=== PATIENT | male | born 1980 | race Caucasian/White ===

== ENCOUNTER 2019-07-12 11:02 | Emergency (ER) | payer OTHER, SELFPAY ==
[2019-07-12 11:03] VITALS: BP 108/76; PULSE 111; RESP 20; TEMP 37; O2SAT 93; BMI 35.1
--- NOTE | 2019-07-12 11:14 | ED.VIS.GEN ---
History of Present Illness Chief Complaint: Fever Informant: Patient Onset: Days Context: Gradual Onset Timing: Continuous Current Severity: Moderate Maximum Severity: Moderate Narrative: The patient presents to the emergency department with cough and fever. 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 He is following with a lung specialist at [facility]. He states that on Thursday, he began to have a low-grade fever. He states he was having worsening cough. He states he just did not feel like he was himself. He called his lung specialist who referred him to the emergency department for evaluation. He denies any chills. He denies any other history of immunosuppression. He is currently on prednisone. He is not on any antibiotics. Prior similar symptoms: Yes Recent Illness/Hospitalization: Yes Past Medical History - Allergies and Home Meds Allergies/Adverse Reactions: Allergies BIRDS Allergy (Uncoded 07/12/19 11:06) Other Primary Care Physician: Rivsa Bal MD [Primary Care Provider] - Prior records reviewed: Yes Past Medical History: - - Hypersensitivity pneumonitis Smoking Status: Never smoker Review of Systems General: Reports: Fever Eyes: Denies: Visual changes - bilaterally, Diplopia ENT: Denies: Rhinorrhea, Sore throat Cardiovascular: Denies: Chest pain, Palpitations Respiratory: Reports: Dyspnea, Cough, Sputum Gastrointestinal: Denies: Abdominal pain, Nausea, Vomiting, Diarrhea, Melena, Hematochezia Genitourinary: Denies: Dysuria, Hematuria, Frequency Musculoskeletal: Denies: Back pain, Extremity Pain Skin: Denies: Rash, Wounds Neurological: Denies: Headache, Weakness, Numbness Physical Exam Vital Signs/Narrative: Vital Signs Temp Pulse Resp BP Pulse Ox 07/12/19 11:03 98.6 F 111 H 20 H 108/76 93 Inital Vital Signs reviewed: Yes General: Well nourished, Well developed, No Acute Distress Head: Normocephalic, Atraumatic Eyes: Perrl, EOMI ENT: Moist mucous membranes, No rhinorrhea Neck: Supple, Nontender Cardiovascular: Regular rate, Regular rhythm, No murmurs Respiratory: No distress, Chest nontender, Decreased Air Movement Abdomen: Soft, Nontender, Nondistended, Normal bowel sounds Back: Nontender, Normal Inspection Extremities: Nontender, No edema Skin: Normal color, No rash Neurological: Alert, Oriented x3, Cranial nerves II-XII grossly intact, Normal Strength, Normal Sensation Psychological: Normal affect, Normal Mood Diagnostic/Tx/Re-eval Chest X-Ray - ED: 2 View, Read by ED Physician, Read by Radiologist, Chronic Changes, Right Infiltrate Clinical Impression(s) from Imaging Studies Chest X-Ray 07/12/19 12:10 IMPRESSION: Hyperexpansion with diffuse interstitial pattern and patchy opacities at both bases. Patchy opacities at both bases may represent atelectasis or early/developing pneumonia. Follow-up imaging should clarify these findings. No acute finding. Electronically Signed: Tej Boo MD at 12:22 EDT , Service support , - Medical Decision Making The patient presents to the emergency department fever. He has recent diagnosis of hypersensitivity pneumonitis. He had a scant cough. He is comfortable on his normal oxygen. He is afebrile here. Metabolic work-up was pursued. He does not have a significant leukocytosis. Chest x-ray demonstrates patchy infiltrates. I am unsure if this is infectious versus his inflammatory process. Either way, with his recent underlying lung disease I am going to cover him with both Augmentin and doxycycline. He does have follow-up this week with his restoration ecologist. Do not feel that he requires admission at this time. He is comfortable with this plan of care. Impression 1. Pneumonitis ED Disposition - Plan for ED Patient: Instructions: PNEUMONIA (Adult) Prescriptions: Amox/Clavulanate Tablet [Augmentin Tablet] 875 mg PO Q12H #20 tab Prescription Printed Doxycycline 100 mg PO BID #20 cap Prescription Printed Referrals: Rivas Bal MD [Primary Care Provider] -
[2019-07-12 12:04] VITALS: TEMP 37
[2019-07-12 12:09] LABS: Hematocrit 40.1 % (40-54); Hemoglobin 13.6 g/dL (13.0-16.5); Mean Corp Hgb Conc 33.9 g/dL (32-36); Mean Corpuscular Hgb 29.8 pg (27.0-32.0); Mean Corpuscular Volume 87.9 fL (80-94); Mean Platelet Vol. 9.1 fl (6.2-12.0); POSITIVE COUNT YES; POSITIVE DIFFERENTIAL YES; POSITIVE MORPHOLOGY YES; Platelet Count 227 K/mm3 (150-450); RBC Distribution Width CV 14.4 % (11.6-14.6); RBC Distribution Width SD 46.2 fl (35.1-43.9); Red Blood Count 4.56 M/mm3 (4.6-6.2); White Blood Count 8.4 K/mm3 (4.4-11.0)
--- NOTE | 2019-07-12 12:10 | RAD_ITS ---
STUDY: X-RAY CHEST REASON FOR EXAM: Male, 38 years old. Fever. TECHNIQUE: Frontal and lateral views of the chest. COMPARISON: None. FINDINGS: Mild hyperexpansion with diffuse interstitial pattern with a basilar predominance. Patchy opacities at both bases which may represent atelectasis or early/developing pneumonia. There is no demonstrated pleural abnormality. Normal size heart. Normal mediastinum and vickie. Normal visualized pulmonary arteries. Normal visualized aortic arch and descending thoracic aorta. Thoracolumbar scoliosis. Normal visualized ribs, clavicles, and shoulders. There is no demonstrated abnormality of the visualized soft tissue structures of the upper abdomen. RAD/Chest PA and Lateral IMPRESSION: Hyperexpansion with diffuse interstitial pattern and patchy opacities at both bases. Patchy opacities at both bases may represent atelectasis or early/developing pneumonia. Follow-up imaging should clarify these findings. No acute finding. Electronically Signed: Tej Boo MD at 12:22 EDT , Service support ,
[2019-07-12 12:25] LABS: Anion Gap 7 (5-15); BUN 11 mg/dL (7-18); BUN/Creat Ratio 14.2 RATIO (10-20); Calcium,Total 8.4 mg/dL (8.5-10.1); Chloride 104 mmol/L (98-107); Creatinine, Serum 0.77 mg/dL (0.70-1.30); EST Glomerular Filtration Rate 119 mL/min (>60); Est Glom Filt Rate - Afr Amer 144 mL/min (>60); Estimated Creatinine Clearance 95.97 ml/min; Glucose 88 mg/dL (74-106); Potassium 3.3 mmol/L (3.5-5.1); Sodium Level 140 mmol/L (136-145)
[2019-07-12 12:30] LABS: Differential Indicated MANUAL DIFF
[2019-07-12 12:40] LABS: Lymphocyte 7 % (19-41); Metamyelocyte 1 % (0-1); Monocyte 6 % (0-10); Neutrophil-Band 33 % (0-5); Neutrophil-Segmented 53 % (47-70); Total Cells Counted 100 (MANUAL DIFF)
[2019-07-12 12:45] LABS: Platelet Estimate ADEQUATE (ADEQ); Platelet Morphology LARGE; Red Cell Morphology NORM C+C NORMAL (NORM C&C)
[2019-07-12 12:46] LABS: Absolute Lymphocyte Count 0.59 X10^3/uL (0.83-4.51); Absolute Neutrophil Count 7.2 X10^3/uL (2.0-7.7); Lymphocyte # 0.59 X10^3/ul (4.0); Neutrophil # 7.24 X10^3/uL (2.7-7.7)
[2019-07-12] MEDS: Doxycycline 100 MG CAPSULE PO (13:09)
[2019-07-12] MEDS: Amox/Clavulanate 875 MG Tablet PO (13:09)
[2019-07-12 13:12] VITALS: BP 108/70; PULSE 109; RESP 21; TEMP 36.8; O2SAT 92
[2019-07-13 14:46] LABS: Pathologist Review Reviewed
== END 2019-07-12 13:14 | disposition home or self-care (01) ==
LOC: ED 11:25
PROVIDERS: Emergency Provider Emergency Medicine; Family Provider Family Medicine; PCP Family Medicine
DX: J67.9 Hypersensitivity pneumonitis due to unspecified organic dust (principal)
CPT/HCPCS: 71046; 80048; 85025; 99285